=== PATIENT | female | born 1995 | race Caucasian/White ===

== ENCOUNTER 2016-11-03 22:51 | Emergency (ER) | payer SELFPAY ==
[2016-11-04 02:15] VITALS: BP 126/58
== END 2016-11-04 02:15 | disposition home or self-care (01) ==
LOC: ED 22:51
DX: S06.9X9A Unspecified intracranial injury with loss of consciousness of unspecified duration, initial encounter (principal); S90.31XA Contusion of right foot, initial encounter; Y04.8XXA Assault by other bodily force, initial encounter; Y93.89 Activity, other specified; Y99.8 Other external cause status; Y92.89 Other specified places as the place of occurrence of the external cause
CPT/HCPCS: Q0092